=== PATIENT | male | born 1960 | race Caucasian/White ===

== ENCOUNTER 2018-05-30 11:36 | Emergency (ER) | payer MEDICARE, MEDICAID ==
[~2018-05-30] VITALS: Ht 185.4 cm; Wt 129.4 kg
[2018-05-30] MEDS ORDERED: GABA-843 PO (12:56)
[2018-05-30] MEDS ORDERED: HUMA100I5 SC (12:56)
[2018-05-30] MEDS ORDERED: VALI5TAB PO (12:56)
[2018-05-30] MEDS ORDERED: ERYT5OPO OD (12:56)
[2018-05-30] MEDS ORDERED: DOCU100C16 PO (12:56)
[2018-05-30] MEDS ORDERED: HYDR10TAB PO (12:56)
[2018-05-30] MEDS ORDERED: AUGM875T28 PO (12:56)
[2018-05-30] MEDS ORDERED: CLINDAMYCIN TOP (12:56)
[2018-05-30] MEDS ORDERED: IBUP-1022 PO (12:56)
[2018-05-30] MEDS ORDERED: CLOT1CRE71 TOP (12:56)
[2018-05-30] MEDS ORDERED: RAMI1CAP24 PO (12:56)
[2018-05-30] MEDS ORDERED: TUSS15SY2 PO (12:56)
[2018-05-30] MEDS ORDERED: FLUC200T2 PO (12:56)
[2018-05-30] MEDS ORDERED: METH1CHW2 PO (12:56)
[2018-05-30] MEDS ORDERED: LANTINJ4 SC (12:56)
[2018-05-30] MEDS ORDERED: VANCOMYCIN HCL 1,000 MG, VIAL MATE ADAPTER 1 EACH in D5W 250 ML IV ONE (13:15)
[2018-05-30] MEDS ORDERED: cefTRIAXone SOD 1 GM in D5W MINI-BAG PLUS 50 ML IV ONE (13:15)
[2018-05-30 14:30] LABS: HEMATOCRIT 43.3 % (42.0-52.0); HEMOGLOBIN 14.4 g/dl (13.5-17.5); MEAN CORPUSCULAR HEMOGLOBIN 28.9 pg (27.0-33.0); MEAN CORPUSCULAR HGB CONC 33.3 g/dl (32.0-36.5); MEAN CORPUSCULAR VOLUME 86.9 fl (80.0-96.0); PLATELET COUNT, AUTOMATED 489 10^3/uL (150-450); RED BLOOD COUNT 4.98 10^6/uL (4.30-6.10); WHITE BLOOD COUNT 16.2 10^3/uL (4.0-10.0)
[2018-05-30 14:33] LABS: ALBUMIN 2.7 GM/DL (3.2-5.2); ALT/SGPT 19 U/L (12-78); BILIRUBIN,TOTAL 0.2 MG/DL (0.2-1.0); BLOOD UREA NITROGEN 15 MG/DL (7-18); C REACTIVE PROTEIN QUANTITATIV 0.95 MG/DL (0.00-0.30); CALCIUM LEVEL 8.4 MG/DL (8.5-10.1); CARBON DIOXIDE LEVEL 25 MEQ/L (21-32); CHLORIDE LEVEL 104 MEQ/L (98-107); CK-MB VALUE MASS < 1.0 NG/ML (<3.6); CPK CREATINE PHOSPHOKINASE 69 U/L (39-308); CREATININE FOR GFR 0.94 MG/DL (0.70-1.30); GLOMERULAR FILTRATION RATE > 60.0 (>56); GLUCOSE, FASTING 201 MG/DL (70-100); MB/CK RELATIVE INDEX 1.45 (< OR =4); POTASSIUM SERUM 4.4 MEQ/L (3.5-5.1); SODIUM LEVEL 138 MEQ/L (136-145); TOTAL PROTEIN 6.8 GM/DL (6.4-8.2); TROPONIN I < 0.02 NG/ML (< 0.10)
--- NOTE | 2018-05-30 14:42 | REP ---
Right foot four views: There are no comparisons. There is demineralization. I suspect a nondisplaced fracture at the head/neck of the fifth digit proximal phalange. This is identified on only one view. Therefore, this could be artifact from positioning or could be an old fracture. Correlation with clinical point tenderness is recommended. There are no lytic, blastic or destructive skeletal changes. There is joint space narrowing of the tarsal ossicles, at T T articulations, PIP articulations and DIP articulations and the great toe MTP articulation compatible with early osteoarthritic change. On the lateral view there is an unusual defect in the neck of the talus. This could represent acute or prior injury. On the lateral view of there is an ossicle inferior to the tarsal ossicles and articulates with the calcaneus. This may represent a dislocated cuboid or cuboid fracture. This should be correlated with clinical point tenderness. CT might be considered for further evaluation Electronically Signed by Jasson Fatima MD 05/30/2018 02:33 P
[2018-05-30 14:50] LABS: ERYTHROCYTE SEDIMENTATION RATE 40 mm/hr (0-20)
[2018-05-30] MEDS ORDERED: DOXY-350 PO (14:51)
[2018-05-30] MEDS ORDERED: LIDOCAINE 1% SDV 5 ML VIAL DILUENT ONE (15:00)
[2018-05-30] MEDS ORDERED: cefTRIAXone SOD 1 GM VIAL (J0696) IM ONE (15:00)
[2018-05-30 16:36] VITALS: BP 180/94
--- NOTE | 2018-06-01 11:40 | ED PDOC ---
Post-Departure Follow-Up dr tamez faxed formal report of right foot film for fu Pat Jasmine MD Jun 01, 2018 11:40
== END 2018-05-30 16:48 | disposition left against medical advice (07) ==
LOC: M ED 11:36
DX: E11.628 Type 2 diabetes mellitus with other skin complications (principal); I10 Essential (primary) hypertension; M79.7 Fibromyalgia; E11.40 Type 2 diabetes mellitus with diabetic neuropathy, unspecified; G47.30 Sleep apnea, unspecified; Z72.0 Tobacco use; Z53.21 Procedure and treatment not carried out due to patient leaving prior to being seen by health care provider; Z79.4 Long term (current) use of insulin; Z79.899 Other long term (current) drug therapy; Z88.5 Allergy status to narcotic agent
CPT/HCPCS: 73630; 80053; 82550; 82553; 84484; 85027; 85652; 86140; 87040; 87081; 96372; 96374; 99284; J0696; J3370

== ENCOUNTER 2018-07-15 12:43 | Outpatient (CLI) | payer MEDICARE, MEDICAID ==
[~2018-07-15] VITALS: Ht 185.4 cm; Wt 127.7 kg
[~2018-07-15 12:43] MED LIST: AUGM875T28 PO; CLINDAMYCIN TOP; CLOT1CRE71 TOP; DOCU100C16 PO; DOXY-350 PO; ERYT1OIN26 OD; FLUC200T2 PO; GABA-843 PO; HUMA100I5 SC; HYDR10TAB PO; IBUP-1022 PO; LANTINJ4 SC; METH1CHW2 PO; RAMI1CAP24 PO; TUSS15SY2 PO; VALI5TAB PO; cefTRIAXone SOD 2 GM in D5W MINI-BAG PLUS 50 ML IV ONE
[2018-07-15 13:17] VITALS: BP 184/90
[2018-07-15 14:19] VITALS: BP 188/94
== END 2018-07-15 14:15 | disposition home or self-care (01) ==
LOC: M INFU 12:43
PROVIDERS: ATTEND Internal Medicine Infectious Disease
DX: L03.818 Cellulitis of other sites (principal); M14.60 Charcot's joint, unspecified site; E11.40 Type 2 diabetes mellitus with diabetic neuropathy, unspecified; Z79.4 Long term (current) use of insulin; I10 Essential (primary) hypertension
CPT/HCPCS: 96365; G0463; J0696

== ENCOUNTER 2018-07-16 08:30 | Outpatient (CLI) | payer MEDICARE, MEDICAID ==
[~2018-07-16] VITALS: Ht 185.4 cm; Wt 127.7 kg
[~2018-07-16 08:30] MED LIST changes: -LIDOCAINE 1% MDV 20ML VIAL As Ordered ONE
[2018-07-16 12:15] VITALS: BP 189/96
[2018-07-16] MEDS ORDERED: cefTRIAXone SOD 2 GM in D5W MINI-BAG PLUS 50 ML IV ONE (12:15)
[2018-07-16] MEDS ORDERED: SODIUM CHLORIDE 0.9% INJ 10 ML SYR IV PRN (13:15)
[2018-07-16 13:40] VITALS: BP 178/92
[2018-07-16 13:44] LABS: BASO # 0.1 10^3/uL (0.0-0.2); BASO % 0.7 % (0.0-1.0); EOS # 0.2 10^3/uL (0.0-0.50); EOS % 1.9 % (0.0-3.0); HEMATOCRIT 36.5 % (42.0-52.0); HEMOGLOBIN 11.8 g/dl (13.5-17.5); LYMPH # 3.2 10^3/uL (1.5-4.5); MEAN CORPUSCULAR HEMOGLOBIN 28.6 pg (27.0-33.0); MEAN CORPUSCULAR HGB CONC 32.3 g/dl (32.0-36.5); MEAN CORPUSCULAR VOLUME 88.4 fl (80.0-96.0); MONO # 1.4 10^3/uL (0.0-0.8); NEUTROPHILS # 7.7 10^3/uL (1.8-7.7); PLATELET COUNT, AUTOMATED 471 10^3/uL (150-450); RED BLOOD COUNT 4.13 10^6/uL (4.30-6.10); WHITE BLOOD COUNT 12.7 10^3/uL (4.0-10.0)
[2018-07-16 15:14] LABS: ERYTHROCYTE SEDIMENTATION RATE 72 mm/hr (0-20)
[2018-07-16 15:27] LABS: ALBUMIN 2.1 GM/DL (3.2-5.2); ALT/SGPT 19 U/L (12-78); BILIRUBIN,TOTAL 0.2 MG/DL (0.2-1.0); BLOOD UREA NITROGEN 15 MG/DL (7-18); C REACTIVE PROTEIN QUANTITATIV 2.18 MG/DL (0.00-0.30); CALCIUM LEVEL 7.3 MG/DL (8.5-10.1); CARBON DIOXIDE LEVEL 27 MEQ/L (21-32); CHLORIDE LEVEL 107 MEQ/L (98-107); CREATININE FOR GFR 0.89 MG/DL (0.70-1.30); GLOMERULAR FILTRATION RATE > 60.0 (>56); GLUCOSE, FASTING 64 MG/DL (70-100); POTASSIUM SERUM 3.6 MEQ/L (3.5-5.1); SODIUM LEVEL 142 MEQ/L (136-145); TOTAL PROTEIN 6.8 GM/DL (6.4-8.2)
[2018-07-16] MEDS ORDERED: SODIUM CHLORIDE 0.9% INJ 10 ML SYR IV SCH (18:00)
== END 2018-07-16 13:45 | disposition home or self-care (01) ==
LOC: M INFU 08:30
PROVIDERS: ATTEND Internal Medicine Infectious Disease
DX: M86.171 Other acute osteomyelitis, right ankle and foot (principal); L03.115 Cellulitis of right lower limb
CPT/HCPCS: 36591; 80053; 85025; 85652; 86140; 96365; J0696

== ENCOUNTER → 2018-07-16 | Outpatient (CLI) | payer MEDICARE, MEDICAID ==
[~2018-07-16] MED LIST changes: +LIDOCAINE 1% MDV 20ML VIAL As Ordered ONE; -cefTRIAXone SOD 2 GM in D5W MINI-BAG PLUS 50 ML IV ONE
--- NOTE | 2018-07-17 10:57 | REP ---
PICC line insertion under ultrasound guidance. The procedure was performed by Kirsten Lockwood under the direct supervision of Dr. Fox. The risks and benefits of the procedure were explained to the patient's / health care proxy, and informed consent was obtained both verbally and written. The right basilic vein was localized using ultrasound guidance. The skin was prepped and draped in the sterile fashion. 5 ml 1% lidocaine was used as a local anesthetic. Using ultrasound guidance the right basilic vein was cannulated and a 0.018 guidewire was inserted and advanced to the SVC using fluoroscopic guidance. The needle was removed and a 4.5 Occitan dilator and peel-away sheath was inserted over the guidewire. A 4.5 Occitan single lumen catheter was cut to the length of 40 cm. The dilator was removed and the catheter was inserted over the guide wire with the tip ending in the SVC. The peel-away sheath was removed and the catheter was flushed with heparinized saline as per hospital protocol. The catheter was affixed to the skin and a sterile dressing was applied. The patient tolerated the procedure well and there were no immediate complications. 0.1 minutes of fluoroscopy time was utilized for this procedure. Reviewed by RODOLFO Krueger 07/16/2018 06:04 P Electronically Signed by Jasson Fox MD 07/17/2018 10:48 A
== END ==
LOC: M RADPRO 10:29
PROVIDERS: ATTEND Internal Medicine Infectious Disease
DX: L03.818 Cellulitis of other sites (principal)

== ENCOUNTER 2018-07-31 12:26 | Emergency (ER) | payer MEDICARE, MEDICAID ==
[2018-07-31 12:27] VITALS: BP 201/98
[2018-07-31 15:14] LABS: BASO % 0.3 % (0.0-1.0); HEMATOCRIT 39.3 % (42.0-52.0); HEMOGLOBIN 12.5 g/dl (13.5-17.5); LYMPH # 1.5 10^3/uL (1.5-4.5); LYMPH % 9.8 % (24.0-44.0); MEAN CORPUSCULAR HEMOGLOBIN 28.7 pg (27.0-33.0); MEAN CORPUSCULAR HGB CONC 31.8 g/dl (32.0-36.5); MEAN CORPUSCULAR VOLUME 90.1 fl (80.0-96.0); MONO # 0.9 10^3/uL (0.0-0.8); NEUTROPHILS # 12.9 10^3/uL (1.8-7.7); NEUTROPHILS % 83.3 % (36.0-66.0); PLATELET COUNT, AUTOMATED 477 10^3/uL (150-450); RED BLOOD COUNT 4.36 10^6/uL (4.30-6.10); WHITE BLOOD COUNT 15.5 10^3/uL (4.0-10.0)
[2018-07-31 15:40] LABS: INR 0.99; PROTHROMBIN TIME 13.2 SECONDS (12.1-14.4)
[2018-07-31 15:41] LABS: PARTIAL THROMBOPLASTIN TIME 30.6 SECONDS (25.4-37.6)
[2018-07-31 15:55] LABS: ALBUMIN 2.3 GM/DL (3.2-5.2); ALT/SGPT 10 U/L (12-78); BILIRUBIN,DIRECT < 0.1 MG/DL (0.0-0.2); BILIRUBIN,TOTAL 0.2 MG/DL (0.2-1.0); BLOOD UREA NITROGEN 18 MG/DL (7-18); C REACTIVE PROTEIN QUANTITATIV < 0.30 MG/DL (0.00-0.30); CALCIUM LEVEL 7.5 MG/DL (8.5-10.1); CARBON DIOXIDE LEVEL 27 MEQ/L (21-32); CHLORIDE LEVEL 107 MEQ/L (98-107); CPK CREATINE PHOSPHOKINASE 190 U/L (39-308); CREATININE FOR GFR 0.95 MG/DL (0.70-1.30); FREE T4 1.01 NG/DL (0.76-1.46); GLOMERULAR FILTRATION RATE > 60.0 (>56); GLUCOSE, FASTING 108 MG/DL (70-100); MB/CK RELATIVE INDEX 1.32 (< OR =4); NT-PRO BNP 4080 PG/ML (<125); POTASSIUM SERUM 4.3 MEQ/L (3.5-5.1); SODIUM LEVEL 140 MEQ/L (136-145); THYROID STIMULATING HORMONE 0.631 uIU/ML (0.358-3.740); TOTAL PROTEIN 7.4 GM/DL (6.4-8.2); TROPONIN I 0.02 NG/ML (< 0.10)
--- NOTE | 2018-08-01 07:33 | ECGEPIP ---
Stationary ECG Study [facility] - ED Test Date: 2018-07-31 Pat Name: ERICK POLLOCK Department: Room: - Gender: M Regulatory Affairs Manager: JT : 1960 Requested By: TOD Higgins Order Number: [id number] Reading MD: Bob Mace Measurements Intervals Challenge Rate: 91 P: 43 [place]: 112 QRS: 27 QRSD: 96 T: 65 QT: 374 QTc: 462 Interpretive Statements SINUS RHYTHM WITH SHORT [place] INTERVAL LEFT ATRIAL ENLARGEMENT POSSIBLE INCOMPLETE RIGHT BUNDLE BRANCH BLOCK MINIMAL ST DEPRESSION NO PRIORS FOR COMPARISON Electronically Signed On 08-01-2018 7:33:16 EDT by Bob Mace
== END 2018-07-31 15:43 | disposition left against medical advice (07) ==
LOC: M ED 12:26
DX: R06.02 Shortness of breath (principal); R22.43 Localized swelling, mass and lump, lower limb, bilateral; E11.9 Type 2 diabetes mellitus without complications; I10 Essential (primary) hypertension; F40.00 Agoraphobia, unspecified; M14.679 Charcot's joint, unspecified ankle and foot; Z79.899 Other long term (current) drug therapy; Z79.4 Long term (current) use of insulin; Z88.5 Allergy status to narcotic agent

== ENCOUNTER 2020-05-25 10:25 | Emergency (ER) | payer MEDICARE, MEDICAID ==
[~2020-05-25] VITALS: Ht 185.4 cm; Wt 136.4 kg
[~2020-05-25 10:25] MED LIST changes: -ERYT1OIN26 OD; +ERYT5OIN25 OD; +GABA-282 PO; -GABA-843 PO
[2020-05-25 10:26] VITALS: BP 198/88
[2020-05-25] MEDS ORDERED: FAMO20TA5 (10:47)
[2020-05-25] MEDS ORDERED: PRED20TA (10:47)
[2020-05-25] MEDS ORDERED: FURO40TA2 (10:47)
[2020-05-25] MEDS ORDERED: METO25TA (10:47)
[2020-05-25] MEDS ORDERED: BYST10TA2 (10:47)
[2020-05-25] MEDS ORDERED: ALBU83IN (10:47)
[2020-05-25] MEDS ORDERED: [UNRECOGNIZED DRUG - CODE] (10:47)
== END 2020-05-25 11:47 | disposition left against medical advice (07) ==
LOC: M ED 10:25
DX: Z53.21 Procedure and treatment not carried out due to patient leaving prior to being seen by health care provider (principal)